=== PATIENT | female | born 1955 | race American Indian/Alaskan Native ===

== ENCOUNTER 2017-02-23 09:51 | Outpatient (CLI) | payer BC ==
--- NOTE | 2017-02-23 16:34 | Ultrasound Report ---
TRANSABDOMINAL AND TRANSVAGINAL PELVIC ULTRASOUND: 02/23/17 10:00:00 CLINICAL: Pelvic pain. FINDINGS: Transabdominal and transvaginal pelvic ultrasound demonstrated absence of the uterus and a normal vaginal cuff. Ovaries are not identified. No adnexal mass or free fluid. Normal urinary bladder. IMPRESSION: Normal pelvis status post total abdominal hysterectomy.
== END 2017-02-23 09:52 | disposition home or self-care (01) ==
LOC: SPVWC 09:51
PROVIDERS: ATTEND Family Medicine Adult Medicine
DX: R10.2 Pelvic and perineal pain (principal); Z90.710 Acquired absence of both cervix and uterus
CPT/HCPCS: 76830; 76856